=== PATIENT | female | born 1950 | race Caucasian/White ===

== ENCOUNTER → 2017-04-20 | Outpatient (CLI) | payer MEDICARE, OTHER ==
[~2017-04-20] MED LIST: ALLP100T PO; ASP81TEC PO; CATHETER FLUSH 10 ML SYR IV PRN; CHLO25TA2 PO; CLON0.5T60 PO; ENAL10TA PO; FURO20TA4 PO; HCTZ12.5T PO; LATA2.5D5 OP; MTP25TSR PO; POTA99TA15 PO; TERA2CAP4 PO; TML.25OP OP
--- NOTE | 2017-04-20 12:27 | Diagnostic Imaging Report ---
EXAMINATION: HIDA with EF measurements Indication: Abdominal pain TECHNIQUE: After the intravenous administration of 5.5 mCi of Tc 99m Choletec, imaging over the abdomen was obtained. This was followed by administration of Ensure orally to stimulate intrinsic CCK secretion, followed by continued imaging with ejection fraction measured. FINDINGS: There is homogeneous uptake in the liver with prompt bile duct and gallbladder filling seen. Bowel activity is seen at 10 minutes. Based on further imaging and gallbladder area of interest activity measurements after the administration of Ensure, the gallbladder ejection fraction is estimated at 62%. IMPRESSION: 1. Normal hepatobiliary uptake and Gallbladder filling. 2. Normal gallbladder ejection fraction. Dictated by: Dictated on workstation # [id number]
== END ==
LOC: CARD 09:44
PROVIDERS: ATTEND Family Medicine
DX: R10.11 Right upper quadrant pain (principal); R19.5 Other fecal abnormalities
CPT/HCPCS: 78227

== ENCOUNTER → 2020-07-31 | Outpatient (CLI) | payer MEDICARE, OTHER ==
[~2020-07-31] MED LIST changes: -CATHETER FLUSH 10 ML SYR IV PRN
--- NOTE | 2020-08-01 10:11 | Diagnostic Imaging Report ---
INDICATION: A mass right lower quadrant abdomen. Serum blood glucose level time of injection is 99 mg/dL. Patient was administered 13.7 mCi F-18 FDG intravenously in the right forearm and PET imaging was performed from the top of skull to mid thighs. Noncontrast CT was also performed for attenuation correction and anatomic correlation. No prior imaging is available for comparison. There is symmetric activity throughout the brain. Physiologic activity within the soft tissues of the neck is noted. No mediastinal or hilar hypermetabolism is identified. No pulmonary parenchymal hypermetabolism is detected. Physiologic activity throughout the gastrointestinal and genitourinary tracts of abdomen and pelvis is noted. The soft tissue mass in the right lower quadrant shows very low level activity with SUV max approximately 4.4. Activity is similar to the surrounding adjacent bowel loops. No other suspicious abnormalities are seen. This appears to contain some calcifications on the conventional CT study. IMPRESSION: Only a very low level activity is identified in the rounded mass with surrounding desmoplastic reaction in the right lower quadrant mesentery. No suspicious foci of hypermetabolism are identified. Dictated by: Dictated on workstation # [id number]
== END ==
LOC: RAD 13:39
PROVIDERS: ATTEND Surgery
DX: R19.03 Right lower quadrant abdominal swelling, mass and lump (principal)
CPT/HCPCS: 78815; A9552

== ENCOUNTER → 2020-09-12 | Outpatient (CLI) | payer MEDICARE, OTHER ==
[~2020-09-12] VITALS: Ht 165 cm; Wt 95.0 kg
[~2020-09-12] MED LIST changes: +CATHETER FLUSH 10 ML SYR IV PRN; +REGADENOSON 0.4 MG/5 ML SYR (LEXISCAN) IV ONE
[2020-09-12 12:32] VITALS: BP 166/91
--- NOTE | 2020-09-12 12:32 | Cardiology Stress Test Report ---
Stress Test Report Date of Procedure/Referring: Date of Procedure: Sep 12, 2020 PCP Peter Oscar MD Admitting Physician Juliana Green MD Indications: Chest pain Baseline Heart Rate: 90 Baseline Blood Pressure: Blood Pressure Systolic: 166 Blood Pressure Diastolic: 91 Baseline EKG: Baseline EKG: normal sinus rhythm Summary After explaining the procedure to the patient, she signed a consent and then brought to the stress nuclear laboratory. Patient received 0.4 mg Lexiscan for stress test, ECG, heart rate and blood p ressure were monitored continuously. Resting and stress dose of radio tracer were injected, imaging was acquired and reviewed in short axis, horizontal long axis and vertical long axis views. TID: 1.15 SSS: 4 SDS: 2 EF: 57 1. Patient tolerated Lexiscan well, had mild shortness of breath with Lexiscan injection resolved spontaneously 2. No significant EKG changes noted during test 3. Breast attenuation, mild decreased uptake in the inferoapical segment with subtle reversibility, no significant ischemia or infarction on SPECT images 4. Normal left ventricular size, EF 57 percent PETER OSCAR MD Sep 12, 2020 12:32
== END ==
LOC: CARD 10:30
PROVIDERS: ATTEND Internal Medicine Cardiovascular Disease
DX: R07.9 Chest pain, unspecified (principal); I10 Essential (primary) hypertension
CPT/HCPCS: 78452; 93017; 93306; A9502